=== PATIENT | female | born 2000 | race Caucasian/White ===

== ENCOUNTER → 2022-06-10 17:01 | Outpatient (CLI) | payer OTHER, SELFPAY ==
--- NOTE | 2022-06-10 | DI.MRI.S_ITS ---
PROCEDURE: MR HEAD/BRAIN WO CON INDICATIONS: HEADACHES TECHNIQUE: Noncontrast axial T1 spin echo, axial T2 fast spin echo, sagittal and axial FLAIR, coronal T2 fast spin echo, axial gradient echo, axial diffusion and ADC through the brain. COMPARISON: None. FINDINGS: Image quality: Excellent. CSF Spaces: Basal cisterns are patent. No extra-axial fluid collections. Ventricles are normal in size and shape. Brain: No intracranial masses or hemorrhage. Montero/white matter interface is normal. Brainstem appears normal. Diffusion-weighted images demonstrate no acute ischemic insult. No chronic ischemic insults. Normal intravascular flow voids are present. Skull and face: Calvarium has normal marrow signal. Orbits appear normal. Sinuses: Sinuses and mastoids are clear. IMPRESSION: Unremarkable brain MRI. No evidence of acute intracranial abnormality. Dictated by: Dmitry Cifuentes M.D. on 06/11/2022 at 8:08 Approved by: Dmitry Cifuentes M.D. on 06/11/2022 at 8:10
== END ==
PROVIDERS: Referring Provider Physician Assistant; Visit Provider Physician Assistant
DX: R51.9 Headache, unspecified (principal)
CPT/HCPCS: 70551

== ENCOUNTER 2024-03-03 21:57 | Emergency (ER) | payer OTHER, SELFPAY ==
[2024-03-03] VITALS (7 sets, daily range): BP systolic 99–116; BP diastolic 58–74; PULSE 53–84; RESP 17; TEMP 36.6; O2SAT 97–100; BMI 22.0
[2024-03-03] MEDS: ONDANSETRON 4 MG ODT SL (22:52)
--- NOTE | 2024-03-03 22:57 | ED_ITS ---
HPI - Nausea/Vomiting/Diarrhea General Chief complaint: Nausea/Vomiting/Diarrhea Stated complaint: Flu, Vomiting, Not Eating Time Seen by Provider: 03/03/24 22:57 Source: patient Mode of arrival: Ambulatory History of Present Illness HPI Narrative: Patient 23-year-old female with no significant past medical history presents to the ED from home for flu-like symptoms. States that she has been having some nausea and vomiting diarrhea ongoing persistent for the past few days. States that her was recently diagnosed with flu had similar symptoms but his has resolved while or she continues to have episodes of nausea vomiting diarrhea no recent antibiotics, she states that she came into the ED today because she just is unable to tolerate anything by mouth, denies any other symptoms such as headache visual disturbances chest pain abdominal pain or any other GI/ symptoms time. Related Data Previous Rx's Medication Instructions Recorded aluminum-mag hydroxide-simethicone 5 ml PO 5XD PRN dyspepsia #3,000 mL 03/03/24 200 mg-200 mg-20 mg/5 mL oral susp (Maalox Advanced) ondansetron 4 mg disintegrating 4 mg PO Q8H 5 days #15 tabs 03/03/24 tablet Allergies Allergy/AdvReac Type Severity Reaction Status Date / Time No Known Drug Allergies Allergy Verified 03/03/24 22:17 Review of Systems Review of Systems Narrative: General: Denies fever, chills, weight loss HEENT: Denies headache, eye drainage, eye irritation, head trauma, sore throat, voice change Cardiovascular: Denies any chest pain, palpitations, shortness of breath, tachycardia Respiratory: Denies any shortness of breath, cough, wheeze, stridor GI/: Positive nausea, vomiting, diarrhea Denies any abdominal pain, bright red blood per rectum, melanotic stools, urinary frequency, urinary retention, dysuria, hematuria MSK: Denies any joint pain, muscle pains, swelling Skin: Denies any rashes, lesions, discoloration Neuro: Denies any headache, lightheadedness, dizziness, fainting, weakness Psych: Denies SI/HI Patient History Social History Smoking Status: Never smoker Smoking Status: Never smoker Exam Initial Vital Signs Initial Vital Signs: Vital Signs Temperature 97.9 F 03/03/24 22:17 Pulse Rate 84 03/03/24 22:17 Respiratory Rate 17 03/03/24 22:17 Blood Pressure 116/74 03/03/24 22:17 Pulse Oximetry 97 03/03/24 22:17 Oxygen Delivery Method Room Air 03/03/24 22:17 Course Orders Ordered: Discontinued Medications Ondansetron HCl (Ondansetron 4 Mg Odt) 4 mg SL NOW ONE Stop: 03/03/24 22:51 Last Admin: 03/03/24 22:52 Dose: 4 mg Documented By: JATIN Vital Signs Vital signs: Vital Signs - 8 hr 03/03/24 22:17 Temperature 97.9 F Pulse Rate 84 Respiratory Rate 17 Blood Pressure 116/74 Pulse Oximetry 97 Oxygen Delivery Method Room Air MDM - Nausea/Vomiting/Diarrhea Differential Diagnosis Differential diagnosis: Likely gastroenteritis and other (Viral syndrome) MDM Narrative Medical decision making narrative: Patient is a 23-year-old female no significant past medical history presented for flu-like symptoms ongoing persistent for the past few days includes nausea vomiting diarrhea with no recent antibiotic use. recently diagnosed with flu had similar symptoms but he is feeling better while patient having persistent symptoms unable to tolerate anything by mouth therefore decided come into the ED for further evaluation treatment. Discussion with the patient at bedside about obtaining lab work as well as any additional swabs, she states that she does not want this she just wants some medication in order to tolerate things by mouth. She was given Zofran here, was able to tolerate p.o. liquids and solids after administration of the medication here, she was given strict return precautions and verbalized understanding of this and agrees to being discharged home with outpatient follow up Discharge Plan Departure Patient Disposition: Home Clinical Impression: Nausea & vomiting Activity Restrictions/Additional Instructions: Please read the discharge instructions sheet carefully and bring all papers to all doctor follow-up visits, as it may contain information that your doctor may want to see. Disease processes change and evolve, if your symptoms worsen or if you develop any new symptoms that are concerning to you please return for evaluation. Your evaluation today does not show any evidence of any life- threatening/serious illnesses requiring admission to the hospital or surgery. Please follow-up with your doctor for re-evaluation in approximately 1 day. Seek immediate medical attention for any worrisome symptoms. Prescriptions: New ondansetron 4 mg tablet,disintegrating 4 mg PO Q8H 5 Days Qty: 15 0RF alum-mag hydroxide-simeth [Maalox Advanced] 200-200-20 mg/5 mL suspension 5 ml PO 5XD PRN (Reason: dyspepsia) Qty: 3000 0RF Rx Instructions: administer between meals and at bedtime Referrals: ProviderCarlos A [Primary Care Provider] - Stand Alone Forms: Patient Portal/API/Survey
== END 2024-03-03 23:57 | disposition home or self-care (01) ==
PROVIDERS: Emergency Provider Student in an Organized Health Care Education/Training Program
DX: R11.2 Nausea with vomiting, unspecified (principal); R19.7 Diarrhea, unspecified
CPT/HCPCS: 99283